=== PATIENT | male | born 1985 | race Two or more races ===

== ENCOUNTER 2018-08-08 17:51 | Emergency (ER) | payer MEDICAID, OTHER ==
[~2018-08-08] VITALS: Ht 185.4 cm; Wt 82.6 kg
[~2018-08-08 17:51] MED LIST: INSU100V8 SQ
--- NOTE | 2018-08-08 18:28 | NUR ---
DRE WYNN BEING DONE AT [facility].
[2018-08-08 18:43] LABS: BASOPHILS # (AUTO) 0.02 x10^3/uL (0-0.1); BASOPHILS % (AUTO) 0 % (0-1); EOSINOPHILS # (AUTO) 0.21 x10^3/uL (0-0.4); EOSINOPHILS % (AUTO) 4 % (1-7); LYMPHOCYTES # (AUTO) 1.99 x10^3/uL (1-3.4); LYMPHOCYTES % (AUTO) 33 % (22-44); MD NO; MEAN CORPUSCULAR HEMOGLOBIN 32.4 pg (27.5-34.5); MEAN CORPUSCULAR HGB CONC 34.8 g/dL (33.2-36.2); MEAN CORPUSCULAR VOLUME 93.2 fL (81-97); MEAN PLATELET VOLUME 9.4 fL (7.4-10.4); MONOCYTES # (AUTO) 0.55 x10^3/uL (0.2-0.8); MONOCYTES % (AUTO) 9 % (2-9); NEUTROPHILS # (AUTO) 3.32 x10^3/uL (1.8-6.8); NEUTROPHILS % (AUTO) 55 % (42-75); PLATELET COUNT 170 x10^3/uL (130-400); RED BLOOD COUNT 4.58 x10^6/uL (4.38-5.82); RED CELL DISTRIBUTION WIDTH 12.8 % (9.4-14.8)
[2018-08-08 18:44] LABS: ALANINE AMINOTRANSFERASE 34 U/L (12-78); ALBUMIN 3.8 g/dL (3.4-5.0); ANION GAP 8 mmol/L (5-15); CALCIUM 8.4 mg/dL (8.5-10.1); CHLORIDE 96 mmol/L (98-107); CREATININE 1.12 mg/dL (0.7-1.3)
[2018-08-08 18:46] LABS: ALKALINE PHOSPHATASE 236 U/L (45-117); BILIRUBIN,TOTAL 0.6 mg/dL (0.2-1.0); TOTAL PROTEIN 7.5 g/dL (6.4-8.2)
[2018-08-08] MEDS ORDERED: SODIUM CHLORIDE 0.9% 1,000ML IVBOLUS ONE (19:00)
[2018-08-08 19:35] VITALS: BP 133/79
--- NOTE | 2018-08-08 20:10 | NUR ---
IV BOLUS INFUSED. ERP AT FOR RE-EVAL. PT STATES HE RAN OUT OF HIS INSULIN LAST NIGHT AND "I'M NOT ALWAYS GOOD ABOUT TAKING IT."
--- NOTE | 2018-08-08 20:20 | NUR ---
FSBG RESULT TOO HIGH FOR GLUCOMETER. ERP NOTIFIED.
--- NOTE | 2018-08-08 20:34 | NUR ---
SPOKE WITH DR. GERONIMO AGAIN ABOUT PT'S "HIGH" FSBG. PT DOES NOT WANT ANY FURTHER INTERVENTIONS DONE, SO WILL BE DISCHARGED PER ERP.
--- NOTE | 2018-08-08 20:41 | NUR ---
Patient/Caregiver given discharge instructions and they have confirmed that they understand the instructions. Patient ambulatory with steady gait.
== END 2018-08-08 21:10 | disposition home or self-care (01) ==
LOC: ED 20:15
DX: M54.42 Lumbago with sciatica, left side (principal); E11.65 Type 2 diabetes mellitus with hyperglycemia; Z86.718 Personal history of other venous thrombosis and embolism
CPT/HCPCS: 36415; 72110; 80053; 85025; 93971; 96360; 99284; J7030